=== PATIENT | female | born 1985 | race Caucasian/White ===

== ENCOUNTER → 2023-03-01 | Outpatient (CLI) | payer OTHER ==
[~2023-03-01] MED LIST: ANTIBIOTIC FOR UTI PO; IRON325 MG PO; MEDROL 4MG DOSPA4 MG PO; NORMODYNE100 MG PO; PRENATAL; PYRIDIUM200 M1 PO; VITAMIN C500 MG PO; VITAMIN D 1001000 IU PO
== END ==
LOC: MC.RAD 08:52
DX: Z12.31 Encounter for screening mammogram for malignant neoplasm of breast (principal)

== ENCOUNTER → 2024-03-04 | Outpatient (CLI) | payer OTHER | LOC: MC.RAD 08:45 | DX: Z12.31 Encounter for screening mammogram for malignant neoplasm of breast (principal) ==